=== PATIENT | female | born 1955 | race Caucasian/White ===

== ENCOUNTER → 2017-01-29 | Outpatient (CLI) | payer BC ==
--- NOTE | 2017-01-29 13:34 | KCIC ---
MRI of the lumbar spine without contrast 01/29/2017 CLINICAL HISTORY: Chronic low back pain for the last year. TECHNIQUE: Unenhanced T1-weighted and T2-weighted sagittal and axial and inversion recovery sagittal images of the lumbar spine were obtained. FINDINGS: Minimal lateral curvature of the lumbar spine is seen convex to the left. There is slight reversal of the normal cervical lordosis. Degenerative signal changes are seen involving all of the disks of the lumbar spine. Degenerative signal changes are seen within the marrow surrounding these discs. The conus medullaris is normal morphology, position, and signal characteristics. A 2.9 cm rounded high signal intensity area is seen involving the medial aspect of the right kidney within the right renal hilum on the T2-weighted images which may represent a parapelvic cyst. A 1.5 cm hemangioma is seen involving the L2 vertebral body. At the L1-2 and L2-3 disc spaces there are minimal to mild generalized disc bulges. Degenerative changes are seen involving the facet joints bilaterally. There is mild ligamentum flavum hypertrophy. These findings when combined do not result in significant central spinal canal or neural foraminal stenosis. At the L3-4 disc space there is a moderate to large generalized disc bulge. This is eccentric to the right. Degenerative changes are seen involving the facet joints bilaterally. There is moderate ligamentum flavum hypertrophy bilaterally. There is prominence of the posterior epidural fat. These findings when combined result in moderate to severe right greater than left central spinal canal stenosis. Mild right neural foraminal stenosis is seen. The left neural foramen is patent. At the L4-5 disc space there is a mild to moderate generalized disc bulge. Superimposed on this disc bulge is a focal central disc herniation. This measures 4 mm in AP diameter. Degenerative changes are seen involving the facet joints bilaterally. There is a small facet joint effusions bilaterally. These findings when combine result in mild central spinal canal stenosis. No neural foraminal stenosis is seen. At the L5-S1 disc space there is a minimal generalized disc bulge. Degenerative changes are seen involving the facet joints bilaterally. These findings when combined do not result in significant central spinal canal or neural foraminal stenosis. IMPRESSION: The changes of degenerative disc disease are seen involving the lumbar spine. These findings result in moderate to severe right greater than left central spinal canal stenosis at L3-4 and mild central spinal canal stenosis at L4-5. Mild right neural foraminal stenosis is seen at L3-4. Electronically signed by: Felix Alaniz MD (01/29/2017 1:28 PM)
== END | disposition home or self-care (01) ==
LOC: KCIC MRI 11:27
PROVIDERS: ATTEND Orthopaedic Surgery
DX: M48.06 Spinal stenosis, lumbar region (principal); M43.8X6 Other specified deforming dorsopathies, lumbar region; M47.896 Other spondylosis, lumbar region; M24.28 Disorder of ligament, vertebrae; D18.09 Hemangioma of other sites
CPT/HCPCS: 72148

== ENCOUNTER → 2017-05-12 | Outpatient (CLI) | payer BC ==
[~2017-05-12] MED LIST: IOHEXOL 240 MG/ML 50ML VIAL. PO ONE; IOHEXOL 300 MG/ML 100ML VIAL. IV ONE; LISI2.5T PO
--- NOTE | 2017-05-12 12:24 | KCIC ---
Indication: Abdominal and pelvic pain. Prior appendectomy, cholecystectomy and hysterectomy. Previous bout of diverticulitis. Current symptoms have been present for one week. Patient on antibiotics. Technique: Axial images and coronal and sagittal reformatted images are provided. Oral contrast and 100 mL of intravenous Omnipaque 300 was administered without complication. No comparison is available. One or more of the following individualized dose reduction techniques were utilized for this examination: 1. Automated exposure control 2. Adjustment of the mA and/or kV according to patient size 3. Use of iterative reconstruction technique Findings: There is minimal atelectasis or scarring in the lingula and middle lobe. There is no consolidation. There is no pleural effusion. The heart is not enlarged. Liver is unremarkable. Gallbladder is absent. Common bile duct is dilated, it measures 16 mm. It tapers distally. Pancreas and adrenals are unremarkable. Spleen is not enlarged. Kidneys are symmetrically perfused. Prominent right renal pelvis versus parapelvic cysts are noted. No obstructing or nonobstructing renal calculus is identified. Neither ureter is dilated or able to be followed in its entirety. Aorta is normal caliber. There is no small bowel obstruction or mural thickening. There is a small hiatal hernia. There are diverticula in the colon. There is minimal inflammatory stranding along the sigmoid colon with questionable mural thickening, this portion of the colon is not well distended. This limits evaluation. Appendix is reported as absent. Small fat-containing umbilical hernia is noted. Bladder is only mildly distended and grossly unremarkable. Uterus is reported as surgically absent. There is abnormal appearance of the vaginal cuff, associated mass is not excluded. Area of concern measures 4.5 x 2.5 cm, 61 Hounsfield units. Stranding in the pelvis is nonspecific, could be inflammatory given appearance of the sigmoid colon, could also be postsurgical. No adenopathy is apparent. There are mild degenerative changes in the spine. There is a 16 mm sclerotic lesion in the S2 segment of the sacrum. There is also a small sclerotic lesion at L2. There is a third sclerotic lesion in the S1 segment on the left. IMPRESSION: 1. Stranding in the pelvis along the sigmoid colon with several diverticula in this region. This segment of the sigmoid colon is not well distended limiting evaluation. A mild diverticulitis without abscess or perforation is suspected. 2. Abnormal appearance of the vaginal cuff with apparent mass lesion at this site. Please correlate with the timing of patient's hysterectomy. Differential considerations would include hematoma or neoplasm, 4.5 x 2.5 cm in size. Consider pelvic MRI with and without contrast. Electronically signed by: Can Donnelly MD (05/12/2017 12:21 PM) [id number]
== END | disposition home or self-care (01) ==
LOC: KCIC CT 09:46
PROVIDERS: ATTEND Family Medicine
DX: K57.30 Diverticulosis of large intestine without perforation or abscess without bleeding (principal); Z90.710 Acquired absence of both cervix and uterus
CPT/HCPCS: 74177; 82565; Q9966; Q9967

== ENCOUNTER → 2017-05-19 | Outpatient (CLI) | payer BC ==
[~2017-05-19] MED LIST changes: +GADOBUTROL 7.5 MMOL/7.5 ML VIAL IV ONE; -IOHEXOL 240 MG/ML 50ML VIAL. PO ONE; -IOHEXOL 300 MG/ML 100ML VIAL. IV ONE
--- NOTE | 2017-05-19 16:39 | KCIC ---
MRI of the pelvis without and with contrast 05/19/2017 CLINICAL HISTORY: Possible mass lesion is seen involving the vaginal cough on recent CT scan of the pelvis. MRI was recommended for further evaluation. TECHNIQUE: Unenhanced T1-weighted and fat-saturated T2-weighted sagittal and axial and coronal images of the pelvis were obtained. After the intravenous administration of 7 cc of Gadavist, enhanced fat saturated T1 weighted axial and coronal images of the pelvis were obtained. FINDINGS: Comparison is made to patient's CT scan of abdomen and pelvis dated 05/12/2017. The patient is post hysterectomy. No abnormal mass is seen involving the vaginal cuff. No adnexal mass is seen. Multiple diverticula are again noted involving the sigmoid colon. No free fluid is seen. No pelvic or inguinal lymphadenopathy is noted. No area of abnormal contrast enhancement is seen. Degenerative changes are seen involving mid and lower lumbar spine and both hips. IMPRESSION: 1. No mass lesion is seen involving the vaginal cuff. 2. Sigmoid diverticulosis. Electronically signed by: Felix Alaniz MD (05/19/2017 4:36 PM) [id number]
== END | disposition home or self-care (01) ==
LOC: KCIC MRI 10:39
PROVIDERS: ATTEND Obstetrics & Gynecology
DX: K57.30 Diverticulosis of large intestine without perforation or abscess without bleeding (principal)
CPT/HCPCS: 72197; A9585

== ENCOUNTER → 2017-07-30 | Outpatient (CLI) | payer BC | END | disposition home or self-care (01) | LOC: KCIC MAMMO 13:47 | DX: Z12.31 Encounter for screening mammogram for malignant neoplasm of breast (principal) | CPT/HCPCS: G0202 ==

== ENCOUNTER → 2017-08-09 | Outpatient (CLI) | payer BC | END | disposition home or self-care (01) | LOC: KCIC MAMMO 08:07 | DX: N63.10 Unspecified lump in the right breast, unspecified quadrant (principal) | CPT/HCPCS: 76641; 77065 ==

== ENCOUNTER → 2018-02-16 | Outpatient (CLI) | payer BC | END | disposition home or self-care (01) | LOC: KCIC MAMMO 12:38 | DX: N63.14 Unspecified lump in the right breast, lower inner quadrant (principal) | CPT/HCPCS: 76641; 77065 ==

== ENCOUNTER → 2018-08-01 | Outpatient (CLI) | payer BC, OTHER ==
[~2018-08-01] MED LIST changes: -GADOBUTROL 7.5 MMOL/7.5 ML VIAL IV ONE
--- NOTE | 2018-08-01 13:01 | KCIC ---
History: Routine screening. Technique: Bilateral digital mammographic routine views were obtained with CAD - computer aided detection. Comparison: July 30, 2017. Findings: Breast Tissue Density C : The breast tissue is heterogeneously dense. Scattered fibroglandular elements may obscure underlying pathology. There is an asymmetric tissue density in the anterior left breast on the MLO view only. There are no suspicious masses or areas of architectural distortion. Impression: Recommend the patient return for a spot MLO view and true lateral view of the left breast. Ultrasound may be necessary as well in order to exclude a possible small mass. The patient and the clinical service will be contacted by the radiologist staff for further structures. BI-RADS Category 0: Incomplete: Need additional imaging evaluation. Your mammogram demonstrates that you have dense breast tissue, which could hide abnormalities, and if you have other risk factors for breast cancer that have been identified, you might benefit from supplemental screening tests that may be suggested by your ordering physician. Dense breast tissue, in and of itself, is a relatively common condition. This information is not provided to cause undue concern, but rather to raise your awareness and to promote discussion with your physician regarding the presence of other risk factors, in addition to dense breast tissue. A report of your mammography results will be sent to you and your physician. You should contact your physician if you have any questions or concerns regarding this report. A mammogram does not have 100% sensitivity and therefore a negative imaging study should not delay further work up of a suspicious abnormality. The patient will receive a letter with the results in the mail. Patient information is entered into the reminder system with a target due date for the next screening mammogram. The patient will receive a reminder. "Our facility is accredited by the [employer] Mammography Program." Electronically signed by: Richi Calvillo III, MD (08/01/2018 12:56 PM) [facility]
== END | disposition home or self-care (01) ==
LOC: KCIC MAMMO 09:51
PROVIDERS: ATTEND Family Medicine
DX: Z12.31 Encounter for screening mammogram for malignant neoplasm of breast (principal)
CPT/HCPCS: 77067

== ENCOUNTER → 2018-08-15 | Outpatient (CLI) | payer BC, OTHER ==
--- NOTE | 2018-08-16 11:58 | KCIC ---
Exam performed: Diagnostic left mammogram and left breast ultrasound. HISTORY: Follow-up asymmetry seen on the screening mammogram. DATE OF SERVICE: 08/15/2018. Comparison made to a previous screening mammogram from 08/01/2018. Discussion: Diagnostic left mammogram: 90 degrees mediolateral as well as spot compression MLO views of the left breast are obtained. The area of asymmetric density in the left breast is redemonstrated. Ultrasound of the left breast will also be performed. Left breast ultrasound: Sonographic evaluation of the left breast is performed and images are obtained. At 12:00 position, 5 cm from nipple, there is a somewhat ill-defined hypoechoic 0.24 x 0.27 cm nodule. At 2:00 position, 7 cm from nipple there is a well-defined ovoid wider than taller nodule with good transmission measuring 0.4 x 0.4 x 0.27 cm. At 11:00 position, 7 cm from the nipple, there is a small elongated 0.4 x 0.16 cm wider than taller anechoic nodule with good through transmission. Scanning in the axillary region demonstrates normal lymph nodes. IMPRESSION: Persistent asymmetric density in the upper left breast seen on diagnostic mammogram. Several anechoic wider than taller benign-appearing cystic nodules including a somewhat lobulated hypoechoic to anechoic nodule at 12:00 position, 5 cm from nipple is seen. This probably represents a complex cyst. 6 months follow-up left breast mammogram and ultrasound may be obtained to ensure interval stability BI-RADS Category 3: Probably Benign. "Our facility is accredited by the [employer] Mammography [employer]." Electronically signed by: Gayla Foster MD (08/16/2018 11:54 AM) [id number]
== END | disposition home or self-care (01) ==
LOC: KCIC MAMMO 12:41
PROVIDERS: ATTEND Family Medicine
DX: N63.21 Unspecified lump in the left breast, upper outer quadrant (principal); N63.22 Unspecified lump in the left breast, upper inner quadrant
CPT/HCPCS: 76641; 77065

== ENCOUNTER → 2019-01-18 | Outpatient (CLI) | payer MEDICARE, OTHER ==
--- NOTE | 2019-01-18 14:42 | KCIC ---
Left breast diagnostic digital mammograms: Reason for examination: Follow-up nodules. Comparison is made to previous study dated 08/01/2018. Interpretation is made with the benefit of CAD. The skin and nipple show no abnormalities. No abnormal axillary lymph nodes are seen. The breast parenchyma is heterogeneously dense. (Breast density: Category C.) There has been apparent resolution of the small nodule seen in the 3:00 position. There are no new dominant masses, suspicious calcifications or architectural distortions. Impression: No evidence of malignancy. Ultrasound to follow. BI-RADS Category 0: Incomplete. Needs additional imaging evaluation. ?Your patient's mammogram demonstrates that she has dense breast tissue (breast density category C or D), which could hide abnormalities, and if she has other risk factors for breast cancer that have been identified, she might benefit from supplemental screening tests that may be suggested by you as her ordering physician. Dense breast tissue, in and of itself, is a relatively common condition. Therefore, this information is not provided to cause undue concern, but rather to raise your awareness and to promote discussion with your patient regarding the presence of other risk factors, in addition to dense breast tissue. Your patient's mammography results will be sent to her. Left breast ultrasound: Comparison is made to previous study dated 08/15/2018. Ultrasound examination of the left breast was performed in the areas of previous mammographic and sonographic concern and at the left axilla. In the 12:00 position 5 cm from the nipple, there continues to be a small hypoechoic circumscribed lesion measuring 2.8 mm in greatest dimension. The cyst seen previously at the 3:00 position 7 cm from the nipple has resolved. There continues to be a small 3.5 mm hypoechoic fibrocystic type lesion at the 11:00 position 7 cm from the nipple is stable. No new cystic or solid lesions are seen. No abnormal appearing lymph nodes are seen in the left axilla. IMPRESSION: Small benign-appearing fibrocystic type lesions at the 12:00 and 11:00 positions without significant change. Interval resolution of the cyst at the 3:00 position. Recommend routine mammographic follow-up. BI-RADS Category 2: Benign. "Our facility is accredited by the [employer] Mammography Program." This patient's information has been entered into a reminder system for the patient to be notified with the results of her examination and a target date for the next mammogram. Electronically signed by: Jihan Paz MD (01/18/2019 2:39 PM) [facility]
== END | disposition home or self-care (01) ==
LOC: KCIC MAMMO 13:12
PROVIDERS: ATTEND Family Medicine
DX: N64.89 Other specified disorders of breast (principal)
CPT/HCPCS: 76641; 77065

== ENCOUNTER → 2019-08-23 | Outpatient (CLI) | payer MEDICARE, OTHER ==
--- NOTE | 2019-08-24 08:51 | KCIC ---
Bilateral digital screening mammograms with 3-D tomosynthesis: Reason for examination: Routine screening. Comparison is made to previous studies dated 08/01/2018 and 07/30/2017. Bilateral mammograms in CC and oblique projections were obtained with 2-D imaging and 3-D tomosynthesis imaging on a Siemens Inspiration unit and reviewed on the workstation. Interpretation was made with the benefit of CAD. The skin and nipples show no abnormalities. No abnormal axillary lymph nodes are seen. The breast parenchyma shows scattered fatty and fibroglandular density. (Breast density: Category B.) There are no dominant masses, suspicious calcifications or architectural distortion. Benign calcifications are present. Impression: No evidence of malignancy. Recommend routine screening. BI-RAD Category 2: Benign. "Our facility is accredited by the [employer] Mammography [employer]." This patient's information has been entered into a reminder system for the patient to be notified with the results of her examination and a target date for the next mammogram. Electronically signed by: Jihan Paz MD (08/24/2019 8:47 AM) [facility]
== END | disposition home or self-care (01) ==
LOC: KCIC MAMMO 14:21
PROVIDERS: ATTEND Family Medicine
DX: Z12.31 Encounter for screening mammogram for malignant neoplasm of breast (principal); N64.89 Other specified disorders of breast
CPT/HCPCS: 77063; 77067

== ENCOUNTER → 2020-10-02 | Outpatient (CLI) | payer MEDICARE, OTHER ==
--- NOTE | 2020-10-02 16:30 | KCIC ---
Bilateral digital screening mammograms: Reason for examination: Routine screening. Comparison is made to previous studies dated back to 07/30/2017. Interpretation was made with the benefit of CAD. The skin and nipples show no abnormalities. No abnormal axillary lymph nodes are seen. The breast par enchyma shows scattered fibroglandular density. (Breast density: Category B.) There are small nodular parenchymal asymmetries which are unchanged. There are no new dominant masses, suspicious calcificat ions or architectural distortions. Some benign calcifications are present. Impression: No evidence of malignancy. Recommend routine screening. BI-RADS category 2: Benign "Our facility is accredited by the [employer] Mammography [employer]." This patient's information has been entered into a reminder system for the patient to be notified wit h the results of her examination and a target date for the next mammogram. Electronically signed by: Jihan Paz MD (10/02/2020 4:27 PM) [email or web address]
== END ==
LOC: KCIC MAMMO 09:46
PROVIDERS: ATTEND Family Medicine
DX: Z12.31 Encounter for screening mammogram for malignant neoplasm of breast (principal)
CPT/HCPCS: 77067

== ENCOUNTER → 2021-10-15 | Outpatient (CLI) | payer MEDICARE, OTHER ==
[~2021-10-15] MED LIST changes: -LISI2.5T PO; +LISI2.5T12 PO
--- NOTE | 2021-10-15 14:10 | KCIC ---
Bilateral digital screening mammograms with 3-D tomosynthesis: Reason for examination: Routine screening. Comparison is made to previous studies dated back to 07/30/2017. Bilateral mammograms in CC and oblique projections were obtained with 2-D imaging and 3-D tomosynthes is imaging on a Siemens Inspiration unit and reviewed on the workstation. Interpretation was made wit h the benefit of CAD. The skin and nipples show no abnormalities. No abnormal axillary lymph nodes are seen. The breast par enchyma shows scattered fatty and fibroglandular density. (Breast density: Category B.) There are no new dominant masses, suspicious calcifications or architectural distortion. Benign calcifications are present. Impression: No evidence of malignancy. Recommend routine screening. BI-RAD Category 2: Benign. "Our facility is accredited by the [employer] Mammography Program." This patient's information has been entered into a reminder system for the patient to be notified wit h the results of her examination and a target date for the next mammogram. Electronically signed by: Jihan Paz MD (10/15/2021 2:08 PM) [email or web address]
== END ==
LOC: KCIC MAMMO 10:53
PROVIDERS: ATTEND Family Medicine
DX: Z12.31 Encounter for screening mammogram for malignant neoplasm of breast (principal)
CPT/HCPCS: 77063; 77067